=== PATIENT | female | born 1955 | race American Indian/Alaskan Native ===

== ENCOUNTER 2018-05-04 08:10 | Inpatient (IN) | payer MEDICARE ==
--- NOTE | 2018-05-04 09:28 | Emergency Department Report ---
ED Shortness of Breath HPI - General Chief Complaint: Adult Asthma Stated Complaint: DIFFICULTY BREATHING Time Seen by Provider: 05/04/18 09:23 Source: EMS Mode of arrival: Stretcher Limitations: Physical Limitation - History of Present Illness Initial Comments: Patient is a 62-year-old female who presents to emergency room with complaints of chest pain and shortness of breath. 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 Patient is currently on antibiotics and a prednisone taper pack. Patient has had multiple breathing treatments since being seen on Saturday. Patient states that the pain in her chest is worse with deep breath and cough and exertion. Patient stated her pain and shortness of breath are better with rest and medications. Patient was brought in by EMS and was given albuterol & Medrol 125 mg and 2 g of magnesium. Patient states she feels a little bit better after the EMS interventions. Patient stated today her symptoms all worsened. Patient states the chest pain is a 6 out of 10 MD Complaint: shortness of breath, cough -: Sudden Severity: severe Pain Scale: 10 Quality: throbbing Consistency: constant Improves With: oxygen, rest, bronchodilators, upright position, medication Worsens With: exertion, movement, coughing, inspiration Known History Of: asthma Context: recent URI Associated Symptoms: chest pain, pain with inspiration, cough, sputum production Treatments Prior to Arrival: oxygen, bronchodilator - Related Data Home Oxygen Therapy: No Home Medications Medication Instructions Recorded Confirmed Last Taken Lisinopril 10 mg PO DAILY 08/22/14 05/24/15 05/24/15 glipiZIDE [Glipizide ER] 10 mg PO AC 08/22/14 05/04/18 05/03/18 ALBUTEROL Inhaler [ProAir HFA 05/24/15 05/24/15 05/24/15 Inhaler] ALBUTEROL NEB's [Proventil 0.083%] 2.5 mg IH TID PRN 05/24/15 05/04/18 05/04/18 Amitriptyline [Elavil] 25 mg PO QHS 05/04/18 05/04/18 05/03/18 Carvedilol [Coreg] 12.5 mg PO BID 05/04/18 05/04/18 05/03/18 Escitalopram [Lexapro] 10 mg PO DAILY 05/04/18 05/04/18 05/03/18 Insulin Detemir [Levemir VIAL] 53 unit SQ QHS 05/04/18 05/04/18 05/03/18 Levofloxacin [Levaquin] 750 mg PO QDAY 05/04/18 05/04/18 05/03/18 Mirtazapine [Remeron] 15 mg PO 05/04/18 05/03/18 NIFEdipine [Nifedipine ER] 30 mg PO 05/04/18 05/03/18 Pantoprazole [Protonix TAB] 40 mg QDAY 05/04/18 05/04/18 05/03/18 Pioglitazone [Actos] 30 mg PO QDAY 05/04/18 05/04/18 05/03/18 Prednisone 20 mg PO DAILY 05/04/18 05/04/18 05/03/18 Pregabalin [Lyrica] 50 mg PO BID 05/04/18 05/04/18 05/03/18 Sodium Bicarbonate 650 mg PO BID 05/04/18 05/04/18 05/03/18 Previous Rx's Medication Instructions Recorded Last Taken Type HYDROcodone/APAP 10-325 [[place] 1 each PO Q6HR PRN #20 tablet 08/22/14 05/24/15 Rx 10/325] Allergies Allergy/AdvReac Type Severity Reaction Status Date / Time sulfamethoxazole Allergy Unknown Verified 08/22/14 07:38 [From Bactrim] trimethoprim [From Bactrim] Allergy Unknown Verified 08/22/14 07:38 azithromycin [From Zithromax] AdvReac Mild Itching Verified 08/22/14 11:36 ED Review of Systems ROS: Stated complaint: DIFFICULTY BREATHING Other details as noted in HPI Constitutional: denies: chills, fever Eyes: denies: eye pain, eye discharge, vision change ENT: denies: ear pain, throat pain Respiratory: cough, shortness of breath, wheezing Cardiovascular: chest pain. denies: palpitations Endocrine: no symptoms reported Gastrointestinal: denies: abdominal pain, nausea, diarrhea Genitourinary: denies: urgency, dysuria, discharge Musculoskeletal: denies: back pain, joint swelling, arthralgia Skin: denies: rash, lesions Neurological: denies: headache, weakness, paresthesias Psychiatric: denies: anxiety, depression Hematological/Lymphatic: denies: easy bleeding, easy bruising ED Past Medical Hx - Past Medical History Previous Medical History?: Yes Hx Hypertension: Yes Hx Diabetes: Yes Hx Renal Disease: Yes (Stage 3) Hx Asthma: Yes Additional medical history: "FAP" - Surgical History Past Surgical History?: Yes Additional Surgical History: "Colon" & "lumbar surgery" - Family History Family history: hypertension - Social History Smoking Status: Current Every Day Smoker Substance Use Type: None - Medications Home Medications: Home Medications Medication Instructions Recorded Confirmed Last Taken Type HYDROcodone/APAP 10-325 [[place] 1 each PO Q6HR PRN #20 tablet 08/22/14 05/24/15 05/24/15 Rx 10/325] Lisinopril 10 mg PO DAILY 08/22/14 05/24/15 05/24/15 History glipiZIDE [Glipizide ER] 10 mg PO AC 08/22/14 05/04/18 05/03/18 History ALBUTEROL Inhaler [ProAir HFA 05/24/15 05/24/15 05/24/15 History Inhaler] ALBUTEROL NEB's [Proventil 0.083%] 2.5 mg IH TID PRN 05/24/15 05/04/18 05/04/18 History Amitriptyline [Elavil] 25 mg PO QHS 05/04/18 05/04/18 05/03/18 History Carvedilol [Coreg] 12.5 mg PO BID 05/04/18 05/04/18 05/03/18 History Escitalopram [Lexapro] 10 mg PO DAILY 05/04/18 05/04/18 05/03/18 History Insulin Detemir [Levemir VIAL] 53 unit SQ QHS 05/04/18 05/04/18 05/03/18 History Levofloxacin [Levaquin] 750 mg PO QDAY 05/04/18 05/04/18 05/03/18 History Mirtazapine [Remeron] 15 mg PO 05/04/18 05/03/18 History NIFEdipine [Nifedipine ER] 30 mg PO 05/04/18 05/03/18 History Pantoprazole [Protonix TAB] 40 mg QDAY 05/04/18 05/04/18 05/03/18 History Pioglitazone [Actos] 30 mg PO QDAY 05/04/18 05/04/18 05/03/18 History Prednisone 20 mg PO DAILY 05/04/18 05/04/18 05/03/18 History Pregabalin [Lyrica] 50 mg PO BID 05/04/18 05/04/18 05/03/18 History Sodium Bicarbonate 650 mg PO BID 05/04/18 05/04/18 05/03/18 History ED Physical Exam - General Limitations: Physical Limitation General appearance: alert, in no apparent distress - Head Head exam: Present: atraumatic, normocephalic - Eye Eye exam: Present: normal appearance - ENT ENT exam: Present: mucous membranes moist - Neck Neck exam: Present: normal inspection - Respiratory Respiratory exam: Present: normal lung sounds bilaterally. Absent: respiratory distress - Cardiovascular Cardiovascular Exam: Present: regular rate, normal rhythm. Absent: systolic murmur, diastolic murmur, rubs, gallop - GI/Abdominal GI/Abdominal exam: Present: soft, normal bowel sounds - Extremities Exam Extremities exam: Present: normal inspection - Back Exam Back exam: Present: normal inspection - Neurological Exam Neurological exam: Present: alert, oriented X3 - Psychiatric Psychiatric exam: Present: normal affect, normal mood - Skin Skin exam: Present: warm, dry, intact, normal color. Absent: rash ED Course Vital Signs 05/04/18 05/04/18 05/04/18 09:06 09:09 09:15 Temperature 98.6 F Pulse Rate 96 H 96 H Respiratory 22 23 Rate Blood Pressure 173/85 O2 Sat by Pulse 98 98 98 Oximetry 05/04/18 05/04/18 05/04/18 10:00 11:00 12:00 Temperature Pulse Rate 94 H 93 H 99 H Respiratory 20 18 21 Rate Blood Pressure 173/85 168/87 175/94 O2 Sat by Pulse 100 97 96 Oximetry 05/04/18 05/04/18 13:00 14:00 Temperature Pulse Rate 99 H 96 H Respiratory 15 18 Rate Blood Pressure 175/94 144/79 O2 Sat by Pulse 96 97 Oximetry - Reevaluation(s) Reevaluation #1: Lung sounds wheezing throughout. Patient still complains of pain in her chest and back and would like something more for pain 05/04/18 11:32 Reevaluation #2: Hospitals consult for admission. Discussed case with Dr. Zaragoza and to assume care. Discussed with patient plan of care. Patient agreed to admission. 05/04/18 12:30 ED Medical Decision Making - Lab Data Result diagrams: 05/04/18 09:39 05/04/18 09:39 - EKG Data -: EKG Interpreted by Me EKG shows normal: sinus rhythm, axis, intervals, QRS complexes, ST-T waves Rate: normal - Radiology Data Radiology results: report reviewed, image reviewed interpreted by me: No acute findings on chest Mohammad chest x-ray per radiologist - Medical Decision Making She is a 62-year-old female that presents emergency room with shortness of breath and chest pain and hypoxia. Patient found to have asthma exacerbation. Will admit patient to the hospital for evaluation and treatment. - Differential Diagnosis asthma exac. copd exac. bronchitis. hypoxia. sob. cp Critical Care Time: Yes Critical care attestation.: If time is entered above; I have spent that time in minutes in the direct care of this critically ill patient, excluding procedure time. Critical Care Time: 40 minutes spent for critical care time ED Disposition Clinical Impression: Respiratory distress, Hypoxia, Asthma exacerbation Disposition: OP ADMIT IP TO THIS HOSP Is pt being admited?: Yes Does the pt Need Aspirin: No Condition: Critical Time of Disposition: 12:35
[2018-05-04 10:04] LABS: Basophils # (Auto) 0.1 K/mm3 (0.0-0.1); Basophils % (Auto) 0.9 % (0.0-1.8); Eosinophils % (Auto) 0.2 % (0.0-4.3); Hematocrit 43.9 % (30.3-42.9); Hemoglobin 14.5 gm/dl (10.1-14.3); Lymphocytes # (Auto) 1.3 K/mm3 (1.2-5.4); Lymphocytes % (Auto) 13.9 % (13.4-35.0); Mean Corpuscular HGB Conc 33 % (30-34); Mean Corpuscular Hemoglobin 31 pg (28-32); Mean Corpuscular Volume 94 fl (79-97); Monocytes # (Auto) 0.9 K/mm3 (0.0-0.8); Platelet Count 178 K/mm3 (140-440); Red Blood Count 4.68 M/mm3 (3.65-5.03); Red Cell Distribution Width 13.9 % (13.2-15.2)
[2018-05-04] MEDS ORDERED: MORPHINE IV ONE (10:05)
[2018-05-04] MEDS ORDERED: BENADRYL IV ONE (10:07)
[2018-05-04 10:17] LABS: Creatine Kinase MB 1.7 ng/mL (0.0-4.0)
[2018-05-04 10:20] LABS: Alanine Aminotransferase 15 units/L (7-56); Albumin 3.9 g/dL (3.9-5); BUN/Creatinine Ratio 18; Blood Urea Nitrogen 27 mg/dL (7-17); Calcium 9.1 mg/dL (8.4-10.2); Hemolysis Index 9
[2018-05-04 10:32] LABS: Bilirubin,Urine NEG (Negative); Blood,Urine NEG (Negative); Color,Urine Yellow (Yellow); Mucus,Urine FEW /HPF; Urobilinogen,Urine < 2.0 mg/dL (<2.0)
[2018-05-04] MEDS ORDERED: DUONEB *Not for PRN Use IH ONE (11:32)
[2018-05-04] MEDS ORDERED: DILAUDID IV ONE (11:33)
--- NOTE | 2018-05-04 11:57 | XRay Report ---
AP CHEST: HISTORY: Short of breath AP view of the chest demonstrates a normal mediastinal and cardiac contour with clear lungs and normal bony and soft tissue structures. IMPRESSION: Unremarkable AP chest.
[2018-05-04] MEDS ORDERED: ASPIRIN PO ONE (12:34)
--- NOTE | 2018-05-04 12:55 | History and Physical Report ---
History of Present Illness Chief complaint: I cant breathe History of present illness: 62 YO Female with HTN, DM, CKD-3, Asthma, FAP, Nicotine Dependence presents to ED for evaluation. Pt states that she has experienced shortness of breath, nonproductive cough, and chest discomfort over the past 1 week with worsening symptoms over the past 2 days. Pt was prescribed and was compliant with oral antibiotics and steroid dose pack last week without improvement in symptoms. Patient has had multiple breathing treatments without improvement. Patient states that the discomfort in her chest is caused by coughing, and worsened with deep breathing. EMS notified, and upon arrival the patient was found to have Acute Respiratory Failure. Pt was transported to [facility] for further care and evaluation. Pt seen and evaluated in ED and found to have Acute Bronchitis complicated by Acute Respiratory Failure, as well as acute on chronic renal failure. PT admitted to medical floor. Past History Past Medical History: diabetes, hypertension, renal failure Past Surgical History: bowel surgery, Other (Lumbar Spine Surgery) Social history: smoking Family history: diabetes, hypertension Medications and Allergies Allergies Allergy/AdvReac Type Severity Reaction Status Date / Time sulfamethoxazole Allergy Unknown Verified 08/22/14 07:38 [From Bactrim] trimethoprim [From Bactrim] Allergy Unknown Verified 08/22/14 07:38 azithromycin [From Zithromax] AdvReac Mild Itching Verified 08/22/14 11:36 Home Medications Medication Instructions Recorded Confirmed Last Taken Type HYDROcodone/APAP 10-325 [[place] 1 each PO Q6HR PRN #20 tablet 08/22/14 05/24/15 05/24/15 Rx 10/325] Lisinopril 10 mg PO DAILY 08/22/14 05/24/15 05/24/15 History glipiZIDE [Glipizide ER] 10 mg PO AC 08/22/14 05/04/18 05/03/18 History ALBUTEROL Inhaler [ProAir HFA 05/24/15 05/24/15 05/24/15 History Inhaler] ALBUTEROL NEB's [Proventil 0.083%] 2.5 mg IH TID PRN 05/24/15 05/04/18 05/04/18 History Amitriptyline [Elavil] 25 mg PO QHS 05/04/18 05/04/18 05/03/18 History Carvedilol [Coreg] 12.5 mg PO BID 05/04/18 05/04/18 05/03/18 History Escitalopram [Lexapro] 10 mg PO DAILY 05/04/18 05/04/18 05/03/18 History Insulin Detemir [Levemir VIAL] 53 unit SQ QHS 05/04/18 05/04/18 05/03/18 History Levofloxacin [Levaquin] 750 mg PO QDAY 05/04/18 05/04/18 05/03/18 History Mirtazapine [Remeron] 15 mg PO 05/04/18 05/03/18 History NIFEdipine [Nifedipine ER] 30 mg PO 05/04/18 05/03/18 History Pantoprazole [Protonix TAB] 40 mg QDAY 05/04/18 05/04/18 05/03/18 History Pioglitazone [Actos] 30 mg PO QDAY 05/04/18 05/04/18 05/03/18 History Prednisone 20 mg PO DAILY 05/04/18 05/04/18 05/03/18 History Pregabalin [Lyrica] 50 mg PO BID 05/04/18 05/04/18 05/03/18 History Sodium Bicarbonate 650 mg PO BID 05/04/18 05/04/18 05/03/18 History Review of Systems Constitutional: no weight loss, no weight gain, no fever, no chills, no sweats Ears, nose, mouth and throat: no ear pain, no ear discharge, no tinnitis, no decreased hearing, no nose pain, no nasal congestion, no nasal discharge Breasts: no change in shape, no swelling, no mass, no skin changes, no Cardiovascular: no chest pain, no orthopnea, no palpitations, no edema, no lightheadedness, no dyspnea on exertion, no paroxysmal nocturnal dyspnea, no claudication Respiratory: cough, shortness of breath, no cough with sputum, no excessive sputum, no hemoptysis, no congestion Gastrointestinal: no nausea, no vomiting, no diarrhea, no constipation Genitourinary Female: no pelvic pain, no flank pain, no menorrhagia, no dysuria , no urinary frequency, no urgency Rectal: no pain, no incontinence, no bleeding Musculoskeletal: no neck stiffness, no neck pain, no shooting arm pain, no arm numbness/tingling, no low back pain, no shooting leg pain Integumentary: no rash, no pruritis, no redness, no sores, no wounds, no jaundice Neurological: no transient paralysis, no paralysis, no weakness, no parathesias , no numbness, no tingling, no seizures, no syncope Psychiatric: no anxiety, no memory loss, no change in sleep habits, no sleep disturbances, no insomnia, no hypersomnia, no change in appetite, no change in libido Endocrine: no cold intolerance, no heat intolerance, no polyphagia, no excessive thirst, no polydipsia, no polyuria, no nocturia Hematologic/Lymphatic: no easy bruising, no easy bleeding, no lymphadenopathy, no lymphedema Allergic/Immunologic: no urticaria, no allergic rhinitis, no wheezing, no persistent infections, no anaphylaxis Exam - Constitutional Vitals: Temp Pulse Resp BP Pulse Ox 98.6 F 99 H 21 175/94 96 05/04/18 09:09 05/04/18 12:00 05/04/18 12:00 05/04/18 12:00 05/04/18 12:00 General appearance: Present: mild distress - EENT Eyes: Present: PERRL ENT: hearing intact, clear oral mucosa - Neck Neck: Present: supple, normal ROM - Respiratory Respiratory effort: labored Respiratory: bilateral: diminished, wheezing - Cardiovascular Heart Sounds: Present: S1 & S2. Absent: rub, click - Extremities Extremities: pulses symmetrical, No edema Peripheral Pulses: within normal limits - Integumentary Integumentary: Present: clear, warm, dry - Musculoskeletal Musculoskeletal: gait normal, strength equal bilaterally - Psychiatric Psychiatric: appropriate mood/affect, intact judgment & insight - Neurologic Neurologic: CNII-XII intact, moves all extremities Results - Labs CBC & Chem 7: 05/04/18 09:39 05/04/18 09:39 Labs: Abnormal lab results 05/04/18 05/04/18 Range/Units 09:39 09:39 Hgb 14.5 H (10.1-14.3) gm/dl Hct 43.9 H (30.3-42.9) % [place] % (Auto) 10.0 H (0.0-7.3) % [place] # 0.9 H (0.0-0.8) K/mm3 Seg Neutrophils % 75.0 H (40.0-70.0) % BUN 27 H (7-17) mg/dL Creatinine 1.5 H (0.7-1.2) mg/dL Glucose 217 H (65-100) mg/dL Alkaline Phosphatase 184 H (35-129) units/L Total Protein 6.2 L (6.3-8.2) g/dL Assessment and Plan - Patient Problems (1) Respiratory failure Current Visit: Yes Status: Acute Qualifiers: Chronicity: acute Respiratory failure complication: hypoxia Qualified Code(s): J96.01 - Acute respiratory failure with hypoxia Plan to address problem: Supplemental oxygen, nebulizer therapy, IV antibiotics, IV steroid therpay. (2) Nicotine dependence Current Visit: Yes Status: Acute Qualifiers: Substance use status: in withdrawal Plan to address problem: supportive care, smoking cessation counseling, (3) Acute bronchitis Current Visit: Yes Status: Acute Qualifiers: Bronchitis organism: unspecified organism Qualified Code(s): J20.9 - Acute bronchitis, unspecified Plan to address problem: IV antibiotics, IV steroid therapy, supplemental oxygen, nebulizer therapy (4) ARF (acute renal failure) Current Visit: Yes Status: Acute Qualifiers: Acute renal failure type: with acute tubular necrosis Qualified Code(s): N17.0 - Acute kidney failure with tubular necrosis Plan to address problem: monitor uop q shift, IVF resuscitation therapy, urine electrolytes, repeat bmp. (5) Accelerated hypertension Current Visit: Yes Status: Acute Plan to address problem: monitor bp q shift, continue prehospital therapy, IV hydralazine prn (6) DVT prophylaxis Current Visit: Yes Status: Acute Plan to address problem: SCD to BLE while in bed.
[2018-05-04] MEDS ORDERED: TYLENOL PO PRN (15:23)
[2018-05-04] MEDS ORDERED: SODIUM CHLORIDE FLUSH SYRINGE 10 ML IV PRN (15:23)
[2018-05-04] MEDS ORDERED: ASPIRIN ONE (15:29)
[2018-05-04] MEDS ORDERED: APRESOLINE IV PRN (15:30)
[2018-05-04] MEDS: NORCO 10/325 PO PRN ×2 (15:51→21:23)
[2018-05-04] MEDS: ZOFRAN IV PRN (15:52)
[2018-05-04] MEDS: PROVENTIL IH PRN (20:39)
[2018-05-04] MEDS: LEVAQUIN 500MG/100ML 500 MG/100 ML BAG IV SCH (21:22)
[2018-05-04] MEDS: LYRICA PO SCH (21:22)
[2018-05-04] MEDS: COREG PO SCH (21:24)
[2018-05-04] MEDS: ELAVIL PO SCH (21:26)
[2018-05-04] MEDS: SODIUM BICARBONATE PO SCH (21:26)
[2018-05-04] MEDS ORDERED: INSULIN DETEMIR 53 UNIT SQ SCH (22:00)
[2018-05-04] MEDS: LANTUS SUB-Q SCH (23:26)
[2018-05-04] MEDS: SODIUM CHLORIDE FLUSH SYRINGE 10 ML IV SCH (23:28)
[2018-05-05] MEDS: PROVENTIL IH PRN ×4 (01:55→16:30)
[2018-05-05] MEDS: ZOFRAN IV PRN (01:55)
[2018-05-05] MEDS: NORCO 10/325 PO PRN ×3 (07:38→21:01)
[2018-05-05] MEDS: LYRICA PO SCH ×3 (07:44→21:01)
[2018-05-05] MEDS: COREG PO SCH ×2 (10:43→22:48)
[2018-05-05] MEDS: LEXAPRO PO SCH (10:45)
[2018-05-05] MEDS: PROTONIX PO SCH (10:45)
[2018-05-05] MEDS: ZESTRIL PO SCH (10:46)
[2018-05-05] MEDS: SODIUM CHLORIDE FLUSH SYRINGE 10 ML IV SCH (10:46)
[2018-05-05] MEDS: SODIUM BICARBONATE PO SCH ×2 (10:46→22:48)
[2018-05-05 12:37] LABS: Creatinine,Urine 71.6 mg/dL (0.1-20.0)
--- NOTE | 2018-05-05 15:45 | Progress Note ---
Assessment and Plan Assessment and Plan - Patient Problems (1) Respiratory failure Current Visit: Yes Status: Acute Qualifiers: Chronicity: acute Respiratory failure complication: hypoxia Qualified Code(s): J96.01 - Acute respiratory failure with hypoxia Plan to address problem: Supplemental oxygen, nebulizer therapy, IV antibiotics, IV steroid therpay. (2) Nicotine dependence Current Visit: Yes Status: Acute Qualifiers: Substance use status: in withdrawal Plan to address problem: supportive care, smoking cessation counseling, (3) Acute bronchitis Current Visit: Yes Status: Acute Qualifiers: Bronchitis organism: unspecified organism Qualified Code(s): J20.9 - Acute bronchitis, unspecified Plan to address problem: IV antibiotics, IV steroid therapy, supplemental oxygen, nebulizer therapy (4) ARF (acute renal failure) Current Visit: Yes Status: Acute Qualifiers: Acute renal failure type: with acute tubular necrosis Qualified Code(s): N17.0 - Acute kidney failure with tubular necrosis Plan to address problem: monitor uop q shift, IVF resuscitation therapy, urine electrolytes, repeat bmp. (5) Accelerated hypertension Current Visit: Yes Status: Acute Plan to address problem: monitor bp q shift, continue prehospital therapy, IV hydralazine prn (6) DVT prophylaxis Current Visit: Yes Status: Acute Plan to address problem: SCD to BLE while in bed. Subjective Date of service: 05/05/18 Principal diagnosis: Acute resp failure Interval history: Sx better Objective - Constitutional Vitals: Vital Signs - 12hr 05/05/18 05/05/18 05/05/18 04:19 07:42 10:43 Temperature 97.8 F 97.4 F L Pulse Rate Pulse Rate [ Anterior Bilateral Throughout] Respiratory 18 19 Rate Respiratory Rate [Anterior Bilateral Throughout] Blood Pressure 179/88 157/77 157/77 O2 Sat by Pulse Oximetry 05/05/18 05/05/18 05/05/18 10:46 11:17 11:21 Temperature 97.9 F Pulse Rate 91 H Pulse Rate [ 91 H Anterior Bilateral Throughout] Respiratory 19 Rate Respiratory 18 Rate [Anterior Bilateral Throughout] Blood Pressure 157/77 155/78 O2 Sat by Pulse 97 99 Oximetry 05/05/18 11:31 Temperature Pulse Rate Pulse Rate [ 97 H Anterior Bilateral Throughout] Respiratory Rate Respiratory 20 Rate [Anterior Bilateral Throughout] Blood Pressure O2 Sat by Pulse Oximetry General appearance: Present: mild distress, well-nourished - EENT Eyes: PERRL, EOM intact ENT: hearing intact, clear oral mucosa Ears: bilateral: normal - Neck Neck: supple, normal ROM - Respiratory Respiratory effort: normal Respiratory: bilateral: CTA, rhonchi, wheezing - Breasts Breasts: deferred, normal - Cardiovascular Heart rate: 78 Rhythm: regular Heart Sounds: Present: S1 & S2. Absent: gallop, rub Extremities: no ischemia, pulses intact, No edema, normal color, Full ROM - Gastrointestinal General gastrointestinal: Present: soft, non-tender, non-distended, normal bowel sounds - Genitourinary Female genitourinary: normal - Integumentary Integumentary: clear, warm, dry - Musculoskeletal Musculoskeletal: 1, strength equal bilaterally - Neurologic Neurologic: moves all extremities - Psychiatric Psychiatric: memory intact, appropriate mood/affect, intact judgment & insight - Labs CBC & Chem 7: 05/04/18 09:39 05/04/18 09:39 Labs: Abnormal lab results 05/04/18 05/05/18 05/05/18 Range/Units 22:46 07:15 07:58 POC Glucose 497 H 320 H (70-105) Urine Creatinine 71.6 H (0.1-20.0) mg/dL 05/05/18 Range/Units 11:26 POC Glucose 385 H (70-105) Urine Creatinine (0.1-20.0) mg/dL
[2018-05-05] MEDS: HumaLOG SUB-Q SCH (18:19)
[2018-05-05] MEDS: DUONEB *Not for PRN Use IH SCH (19:39)
[2018-05-05] MEDS: LEVAQUIN 500MG/100ML 500 MG/100 ML BAG IV SCH (21:03)
[2018-05-05] MEDS: ELAVIL PO SCH (22:48)
[2018-05-05] MEDS: LANTUS SUB-Q SCH (22:49)
[2018-05-06] MEDS: DUONEB *Not for PRN Use IH SCH ×4 (01:41→19:14)
[2018-05-06] MEDS: ZOFRAN IV PRN ×2 (05:01→13:44)
[2018-05-06] MEDS: MORPHINE IV PRN ×2 (05:01→13:44)
[2018-05-06] MEDS: PROTONIX PO SCH (09:10)
[2018-05-06] MEDS: LYRICA PO SCH ×3 (09:11→23:32)
[2018-05-06] MEDS: ZESTRIL PO SCH (09:11)
[2018-05-06] MEDS: HumaLOG SUB-Q SCH ×5 (09:12→23:20)
[2018-05-06] MEDS: SODIUM BICARBONATE PO SCH ×2 (09:12→23:19)
[2018-05-06] MEDS: LEXAPRO PO SCH (09:12)
[2018-05-06] MEDS: SODIUM CHLORIDE FLUSH SYRINGE 10 ML IV SCH ×3 (09:13→23:26)
[2018-05-06] MEDS: COREG PO SCH ×2 (09:14→23:25)
[2018-05-06] MEDS: NORCO 10/325 PO PRN (09:52)
--- NOTE | 2018-05-06 14:38 | Progress Note ---
Assessment and Plan Assessment and plan: Patient is a 62 yo woman with a history IDDM, CKD 3, FAP, hypertension, depression, GERD, peripheral neuropathy and tobacco dependency who presents with sob. -Suspected Acute hypoxic respiratory failure, poa: down to 1 liter of O2, continue to wean, treat with iv steroids and nebs. -Acute asthma exacerabation: steroid and nebs. -Tobacco dependency: patent counsel on stopping done. -IDDM uncontrolled due to steroids: reduce iv steroids, ssi, ada -CKD 3: repeat bmp am -DVT prophylaxis: add sq heparin renally dosed. full code History Interval history: Patient was seen and examined. Follow-up on current diagnosis of sob. Overnight uneventful. Patient denies any chest pain, nausea/vomiting or severe headaches. Imaging, nursing note, chart, labs and old chart reviewed. Discussed with patient. Hospitalist Physical - Physical exam Narrative exam: GEN: ill appearing, NAD, Awake, Alert, Orientated x 3 HEENT: NCAT, EOMI, PERRL, OP Clear NECK: supple, no adenopathy, no thyromegaly, no JVD CVS/HEART: RRR, normal S1S2, pulses present bilaterally CHEST/LUNGS: diminished bs bilateral, exp wheezing, Symmetrical chest expansion , good air entry bilaterally GI/Abdomen: soft, NTND, good bowel sounds, no guarding or rebound /Bladder: no suprapubic tenderness, no CVA or paraspinal tenderness EXT/Skin: no c/c/e, no obvious rash MSK: FROM x 4 Neuro: CN 2-12 grossly intact, no new focal deficits Psych: calm - Constitutional Vitals: Temp Pulse Resp BP Pulse Ox 97.7 F 90 20 146/77 84 05/06/18 14:22 05/06/18 14:22 05/06/18 14:22 05/06/18 14:22 05/06/18 14:22 General appearance: Present: mild distress, well-nourished Results - Labs CBC & Chem 7: 05/04/18 09:39 05/04/18 09:39 Labs: Laboratory Last Values WBC 9.1 K/mm3 (4.5-11.0) 05/04/18 09:39 RBC 4.68 M/mm3 (3.65-5.03) 05/04/18 09:39 Hgb 14.5 gm/dl (10.1-14.3) H 05/04/18 09:39 Hct 43.9 % (30.3-42.9) H 05/04/18 09:39 MCV 94 fl (79-97) 05/04/18 09:39 MCH 31 pg (28-32) 05/04/18 09:39 MCHC 33 % (30-34) 05/04/18 09:39 RDW 13.9 % (13.2-15.2) 05/04/18 09:39 Plt Count 178 K/mm3 (140-440) 05/04/18 09:39 Lymph % (Auto) 13.9 % (13.4-35.0) 05/04/18 09:39 [place] % (Auto) 10.0 % (0.0-7.3) H 05/04/18 09:39 Eos % (Auto) 0.2 % (0.0-4.3) 05/04/18 09:39 Baso % (Auto) 0.9 % (0.0-1.8) 05/04/18 09:39 Lymph # 1.3 K/mm3 (1.2-5.4) 05/04/18 09:39 [place] # 0.9 K/mm3 (0.0-0.8) H 05/04/18 09:39 Eos # 0.0 K/mm3 (0.0-0.4) 05/04/18 09:39 Baso # 0.1 K/mm3 (0.0-0.1) 05/04/18 09:39 Seg Neutrophils % 75.0 % (40.0-70.0) H 05/04/18 09:39 Seg Neutrophils # 6.8 K/mm3 (1.8-7.7) 05/04/18 09:39 D-Dimer 135.00 ng/mlDDU (0-234) 05/04/18 09:39 Sodium 137 mmol/L (137-145) 05/04/18 09:39 Potassium 4.4 mmol/L (3.6-5.0) 05/04/18 09:39 Chloride 98.7 mmol/L (98-107) 05/04/18 09:39 Carbon Dioxide 27 mmol/L (22-30) 05/04/18 09:39 Anion Gap 16 mmol/L 05/04/18 09:39 BUN 27 mg/dL (7-17) H 05/04/18 09:39 Creatinine 1.5 mg/dL (0.7-1.2) H 05/04/18 09:39 Estimated GFR 43 ml/min 05/04/18 09:39 BUN/Creatinine Ratio 18 % 05/04/18 09:39 Glucose 217 mg/dL (65-100) H 05/04/18 09:39 POC Glucose 365 (70-105) H 05/06/18 11:44 Lactic Acid 1.50 mmol/L (0.7-2.0) 05/04/18 09:39 Calcium 9.1 mg/dL (8.4-10.2) 05/04/18 09:39 Total Bilirubin 0.60 mg/dL (0.1-1.2) 05/04/18 09:39 AST 15 units/L (5-40) 05/04/18 09:39 ALT 15 units/L (7-56) 05/04/18 09:39 Alkaline Phosphatase 184 units/L (35-129) H 05/04/18 09:39 Total Creatine Kinase 112 units/L (30-135) 05/04/18 09:39 CK-MB (CK-2) 1.7 ng/mL (0.0-4.0) 05/04/18 09:39 CK-MB (CK-2) Rel Index 1.5 (0-4) 05/04/18 09:39 Troponin T < 0.010 ng/mL (0.00-0.029) 05/04/18 09:39 NT-Pro-B Natriuret Pep 258.5 pg/mL (0-900) 05/04/18 09:36 Total Protein 6.2 g/dL (6.3-8.2) L 05/04/18 09:39 Albumin 3.9 g/dL (3.9-5) 05/04/18 09:39 Albumin/Globulin Ratio 1.7 % 05/04/18 09:39 Urine Color Yellow (Yellow) 05/04/18 09:59 Urine Turbidity Clear (Clear) 05/04/18 09:59 Urine pH 6.0 (5.0-7.0) 05/04/18 09:59 Ur Specific [place] 1.017 (1.003-1.030) 05/04/18 09:59 Urine Protein 100 mg/dl mg/dL (Negative) 05/04/18 09:59 Urine Glucose (UA) >=500 mg/dL (Negative) 05/04/18 09:59 Urine Ketones Neg mg/dL (Negative) 05/04/18 09:59 Urine Blood Neg (Negative) 05/04/18 09:59 Urine Nitrite Neg (Negative) 05/04/18 09:59 Urine Bilirubin Neg (Negative) 05/04/18 09:59 Urine Urobilinogen < 2.0 mg/dL (<2.0) 05/04/18 09:59 Ur Leukocyte Esterase Neg (Negative) 05/04/18 09:59 Urine WBC (Auto) 1.0 /HPF (0.0-6.0) 05/04/18 09:59 Urine RBC (Auto) 3.0 /HPF (0.0-6.0) 05/04/18 09:59 U Epithel Cells (Auto) 1.0 /HPF (0-13.0) 05/04/18 09:59 Urine Mucus Few /HPF 05/04/18 09:59 Urine Yeast (Budding) 1+ /HPF 05/04/18 09:59 Urine Creatinine 71.6 mg/dL (0.1-20.0) H 05/05/18 07:58 Urine Sodium 48 mmol/L 05/05/18 07:58
[2018-05-06] MEDS: ELAVIL PO SCH (23:19)
[2018-05-06] MEDS: LEVAQUIN 500MG/100ML 500 MG/100 ML BAG IV SCH (23:24)
[2018-05-06] MEDS: LANTUS SUB-Q SCH (23:26)
[2018-05-07] MEDS: NORCO 10/325 PO PRN ×2 (01:16→18:15)
[2018-05-07] MEDS: DUONEB *Not for PRN Use IH SCH ×4 (01:32→19:05)
[2018-05-07] MEDS: MORPHINE IV PRN ×2 (03:53→10:07)
[2018-05-07 07:44] LABS: Hematocrit 43.5 % (30.3-42.9); Hemoglobin 14.3 gm/dl (10.1-14.3); Mean Corpuscular HGB Conc 33 % (30-34); Mean Corpuscular Hemoglobin 31 pg (28-32); Mean Corpuscular Volume 95 fl (79-97); Platelet Count 173 K/mm3 (140-440); Red Blood Count 4.58 M/mm3 (3.65-5.03); Red Cell Distribution Width 13.7 % (13.2-15.2)
[2018-05-07 08:09] LABS: Calcium 8.9 mg/dL (8.4-10.2)
[2018-05-07] MEDS ORDERED: HumaLOG SUB-Q ONE ×2 (08:45→12:47)
[2018-05-07] MEDS: HumaLOG SUB-Q SCH ×4 (08:57→23:09)
[2018-05-07] MEDS: LYRICA PO SCH ×3 (10:08→23:10)
[2018-05-07] MEDS: SODIUM BICARBONATE PO SCH ×2 (12:20→23:10)
[2018-05-07] MEDS: COREG PO SCH ×2 (12:21→23:13)
[2018-05-07] MEDS: PROTONIX PO SCH (12:21)
[2018-05-07] MEDS: LEXAPRO PO SCH (12:21)
[2018-05-07] MEDS: ZESTRIL PO SCH (12:22)
[2018-05-07] MEDS: ZOFRAN IV PRN (13:09)
[2018-05-07] MEDS: SODIUM CHLORIDE FLUSH SYRINGE 10 ML IV SCH ×2 (13:09→22:00)
[2018-05-07] MEDS ORDERED: D50W (25GM) Syringe IV PRN (15:53)
--- NOTE | 2018-05-07 15:55 | Progress Note ---
Assessment and Plan Assessment and plan: Patient is a 62 yo woman with a history IDDM, CKD 3, FAP, hypertension, depression, GERD, peripheral neuropathy and tobacco dependency who presents with sob. -Suspected Acute hypoxic respiratory failure, poa: down to 1 liter of O2, continue to wean, treat with iv steroids and nebs. -Acute asthma exacerabation: steroid and nebs. -Tobacco dependency: correctional counselor/case manager on stopping done. -IDDM uncontrolled due to steroids: reduce iv steroids, ssi, ada -CKD 3: repeat bmp am -DVT prophylaxis: add sq heparin renally dosed. full code Blood glucose extremely high, will increase Lantus to 56 units qhs and increase ssi also. anticipate discharge tomorrow if blood glucose under 300 History Interval history: Patient was seen and examined. Follow-up on current diagnosis of sob. Overnight uneventful. Patient denies any chest pain, nausea/vomiting or severe headaches. Imaging, nursing note, chart, labs and old chart reviewed. Discussed with patient. Hospitalist Physical - Physical exam Narrative exam: GEN: ill appearing, NAD, Awake, Alert, Orientated x 3 HEENT: NCAT, EOMI, PERRL, OP Clear NECK: supple, no adenopathy, no thyromegaly, no JVD CVS/HEART: RRR, normal S1S2, pulses present bilaterally CHEST/LUNGS: diminished bs bilateral, exp wheezing, Symmetrical chest expansion , good air entry bilaterally GI/Abdomen: soft, NTND, good bowel sounds, no guarding or rebound /Bladder: no suprapubic tenderness, no CVA or paraspinal tenderness EXT/Skin: no c/c/e, no obvious rash MSK: FROM x 4 Neuro: CN 2-12 grossly intact, no new focal deficits Psych: calm - Constitutional Vitals: Temp Pulse Resp BP Pulse Ox 98.9 F 111 H 18 194/100 98 05/07/18 14:45 05/07/18 14:45 05/07/18 14:45 05/07/18 14:45 05/07/18 14:45 General appearance: Present: well-nourished. Absent: mild distress Results - Labs CBC & Chem 7: 05/07/18 07:04 05/07/18 14:25 Labs: Laboratory Last Values WBC 13.4 K/mm3 (4.5-11.0) H 05/07/18 07:04 RBC 4.58 M/mm3 (3.65-5.03) 05/07/18 07:04 Hgb 14.3 gm/dl (10.1-14.3) 05/07/18 07:04 Hct 43.5 % (30.3-42.9) H 05/07/18 07:04 MCV 95 fl (79-97) 05/07/18 07:04 MCH 31 pg (28-32) 05/07/18 07:04 MCHC 33 % (30-34) 05/07/18 07:04 RDW 13.7 % (13.2-15.2) 05/07/18 07:04 Plt Count 173 K/mm3 (140-440) 05/07/18 07:04 Lymph % (Auto) 13.9 % (13.4-35.0) 05/04/18 09:39 [place] % (Auto) 10.0 % (0.0-7.3) H 05/04/18 09:39 Eos % (Auto) 0.2 % (0.0-4.3) 05/04/18 09:39 Baso % (Auto) 0.9 % (0.0-1.8) 05/04/18 09:39 Lymph # 1.3 K/mm3 (1.2-5.4) 05/04/18 09:39 [place] # 0.9 K/mm3 (0.0-0.8) H 05/04/18 09:39 Eos # 0.0 K/mm3 (0.0-0.4) 05/04/18 09:39 Baso # 0.1 K/mm3 (0.0-0.1) 05/04/18 09:39 Seg Neutrophils % 75.0 % (40.0-70.0) H 05/04/18 09:39 Seg Neutrophils # 6.8 K/mm3 (1.8-7.7) 05/04/18 09:39 D-Dimer 135.00 ng/mlDDU (0-234) 05/04/18 09:39 Sodium 134 mmol/L (137-145) L 05/07/18 07:04 Potassium 5.3 mmol/L (3.6-5.0) H D 05/07/18 07:04 Chloride 95.1 mmol/L (98-107) L 05/07/18 07:04 Carbon Dioxide 23 mmol/L (22-30) 05/07/18 07:04 Anion Gap 21 mmol/L 05/07/18 07:04 BUN 40 mg/dL (7-17) H 05/07/18 07:04 Creatinine 1.6 mg/dL (0.7-1.2) H 05/07/18 07:04 Estimated GFR 40 ml/min 05/07/18 07:04 BUN/Creatinine Ratio 25 % 05/07/18 07:04 Glucose 591 mg/dL (65-100) H* 05/07/18 14:25 POC Glucose > 500 (70-105) H 05/07/18 12:11 Lactic Acid 1.50 mmol/L (0.7-2.0) 05/04/18 09:39 Calcium 8.9 mg/dL (8.4-10.2) 05/07/18 07:04 Total Bilirubin 0.60 mg/dL (0.1-1.2) 05/04/18 09:39 AST 15 units/L (5-40) 05/04/18 09:39 ALT 15 units/L (7-56) 05/04/18 09:39 Alkaline Phosphatase 184 units/L (35-129) H 05/04/18 09:39 Total Creatine Kinase 112 units/L (30-135) 05/04/18 09:39 CK-MB (CK-2) 1.7 ng/mL (0.0-4.0) 05/04/18 09:39 CK-MB (CK-2) Rel Index 1.5 (0-4) 05/04/18 09:39 Troponin T < 0.010 ng/mL (0.00-0.029) 05/04/18 09:39 NT-Pro-B Natriuret Pep 258.5 pg/mL (0-900) 05/04/18 09:36 Total Protein 6.2 g/dL (6.3-8.2) L 05/04/18 09:39 Albumin 3.9 g/dL (3.9-5) 05/04/18 09:39 Albumin/Globulin Ratio 1.7 % 05/04/18 09:39 Urine Color Yellow (Yellow) 05/04/18 09:59 Urine Turbidity Clear (Clear) 05/04/18 09:59 Urine pH 6.0 (5.0-7.0) 05/04/18 09:59 Ur Specific [place] 1.017 (1.003-1.030) 05/04/18 09:59 Urine Protein 100 mg/dl mg/dL (Negative) 05/04/18 09:59 Urine Glucose (UA) >=500 mg/dL (Negative) 05/04/18 09:59 Urine Ketones Neg mg/dL (Negative) 05/04/18 09:59 Urine Blood Neg (Negative) 05/04/18 09:59 Urine Nitrite Neg (Negative) 05/04/18 09:59 Urine Bilirubin Neg (Negative) 05/04/18 09:59 Urine Urobilinogen < 2.0 mg/dL (<2.0) 05/04/18 09:59 Ur Leukocyte Esterase Neg (Negative) 05/04/18 09:59 Urine WBC (Auto) 1.0 /HPF (0.0-6.0) 05/04/18 09:59 Urine RBC (Auto) 3.0 /HPF (0.0-6.0) 05/04/18 09:59 U Epithel Cells (Auto) 1.0 /HPF (0-13.0) 05/04/18 09:59 Urine Mucus Few /HPF 05/04/18 09:59 Urine Yeast (Budding) 1+ /HPF 05/04/18 09:59 Urine Creatinine 71.6 mg/dL (0.1-20.0) H 05/05/18 07:58 Urine Sodium 48 mmol/L 05/05/18 07:58
[2018-05-07] MEDS: HEPARIN SUB-Q SCH ×2 (16:15→23:11)
[2018-05-07] MEDS ORDERED: LANTUS SUB-Q SCH (22:00)
[2018-05-07] MEDS: ELAVIL PO SCH (23:12)
[2018-05-08] MEDS: DUONEB *Not for PRN Use IH SCH ×3 (02:09→14:42)
[2018-05-08] MEDS: NORCO 10/325 PO PRN ×2 (05:30→12:18)
[2018-05-08 07:55] LABS: Hematocrit 45.2 % (30.3-42.9); Hemoglobin 14.9 gm/dl (10.1-14.3); Mean Corpuscular HGB Conc 33 % (30-34); Mean Corpuscular Hemoglobin 31 pg (28-32); Mean Corpuscular Volume 94 fl (79-97); Platelet Count 167 K/mm3 (140-440); Red Blood Count 4.79 M/mm3 (3.65-5.03); Red Cell Distribution Width 13.9 % (13.2-15.2)
[2018-05-08] MEDS: LYRICA PO SCH ×2 (09:01→16:00)
[2018-05-08] MEDS: HumaLOG SUB-Q SCH ×3 (09:03→17:35)
--- NOTE | 2018-05-08 09:16 | Discharge Summary ---
Providers - Providers Date of Admission: 05/04/18 15:23 Date of discharge: 05/08/18 Attending physician: CLIFFORD COX Primary care physician: PERSONNEL RECRUITER Hospitalization Condition: Stable Hospital course: Patient is a 62 yo woman with a history IDDM, CKD 3, FAP, hypertension, depression, GERD, peripheral neuropathy and tobacco dependency who presents with sob. -Suspected Acute hypoxic respiratory failure, poa: down to 1 liter of O2, continue to wean, treat with iv steroids and nebs. -Acute asthma exacerabation: steroid and nebs. -Tobacco dependency: business and financial counsel on stopping done. -IDDM uncontrolled due to steroids: reduce iv steroids, ssi, ada -CKD 3: repeat bmp am -DVT prophylaxis: add sq heparin renal dosed. full code o2 weaned off at rest Disposition: IN-01 TO HOME OR SELFCARE Time spent for discharge: 35 min Core Measure Documentation - Palliative Care Palliative Care/ Comfort Measures: Not Applicable - Core Measures Any of the following diagnoses?: none - VTE Discharge Requirements Deep Vein Thrombosis/Pulmonary Embolism Present on Admission: No Has pt received <5 days of overlap therapy or INR<2.0: No Anticoagulant overlap therapy prescribed at discharge: No Contraindication No Overlap Therapy order at DC: Not Indicated Exam - Physical Exam Narrative exam: GEN: ill appearing, NAD, Awake, Alert, Orientated x 3 HEENT: NCAT, EOMI, PERRL, OP Clear NECK: supple, no adenopathy, no thyromegaly, no JVD CVS/HEART: RRR, normal S1S2, pulses present bilaterally CHEST/LUNGS: diminished bs bilateral, exp wheezing, Symmetrical chest expansion , good air entry bilaterally GI/Abdomen: soft, NTND, good bowel sounds, no guarding or rebound /Bladder: no suprapubic tenderness, no CVA or paraspinal tenderness EXT/Skin: no c/c/e, no obvious rash MSK: FROM x 4 Neuro: CN 2-12 grossly intact, no new focal deficits Psych: calm - Constitutional Vitals: Temp Pulse Resp BP Pulse Ox 98.3 F 96 H 22 154/83 100 05/08/18 08:08 05/08/18 09:11 05/08/18 09:11 05/08/18 08:08 05/08/18 09:11 Plan Activity: other (no strenous activity until cleared by pcp) Diet: low salt, diabetic Special Instructions: record daily BP diary, record blood sugar diary Follow up with: PRIMARY CARE, [Primary Care Provider] - 3-5 Days Prescriptions: Insulin Detemir [Levemir VIAL] 56 unit SQ QHS #1 vial Acetaminophen [Acetaminophen TAB] 650 mg PO Q4H PRN #30 tablet PRN Reason: Pain MILD(1-3)/Fever >100.5/[place] ALBUTEROL Inhaler [ProAir HFA Inhaler] 2 puff INHALATION Q12H PRN #1 unit PRN Reason: Wheezing ALBUTEROL NEB's [Proventil 0.083% NEBS] 2.5 mg IH Q4HRT PRN #30 nebu PRN Reason: Shortness Of Breath ALBUTEROL NEB's [Proventil 0.083% NEBS] 2.5 mg IH TID PRN #30 nebu PRN Reason: Wheezing Budesonide/Formoterol Fumarate [Symbicort 160-4.5 Mcg Inhaler] 1 dose IH BID #1 unit Carvedilol [Coreg] 12.5 mg PO BID #60 tablet Escitalopram [Lexapro] 10 mg PO DAILY #30 tablet HYDROcodone/APAP 10-325 [[place] 10-325 mg TAB] 1 each PO Q6HR PRN #12 tablet PRN Reason: Pain , Severe (7-10) Ipratropium/Albuterol Sulfate [DUONEB *Not for PRN Use*] 1 ampul IH TID #30 ampul.neb Lisinopril [Zestril TAB] 10 mg PO DAILY #30 tablet Lispro Insulin [Humalog] 1 dose SUB-Q ACHS #100 units Mirtazapine [Remeron] 15 mg PO HS #15 tablet NIFEdipine [Nifedipine ER] 30 mg PO DAILY #30 tab.er.24 Pantoprazole [Protonix TAB] 20 mg PO QDAY #30 tablet. predniSONE [Deltasone] 1 dose PO DAILY #48 tablet Pregabalin [Lyrica] 50 mg PO BID #60 capsule Sodium Bicarbonate 650 mg PO BID #60 tablet Levofloxacin [Levaquin TAB] 500 mg PO Q48HR #5 tablet
[2018-05-08] MEDS ORDERED: PROCARDIA XL PO SCH (10:00)
[2018-05-08] MEDS ORDERED: LEVAQUIN PO SCH (10:00)
[2018-05-08] MEDS: PROTONIX PO SCH (11:40)
[2018-05-08] MEDS: SODIUM BICARBONATE PO SCH (11:40)
[2018-05-08] MEDS: ZESTRIL PO SCH (11:41)
[2018-05-08] MEDS: LEXAPRO PO SCH (11:41)
[2018-05-08] MEDS: COREG PO SCH (11:42)
[2018-05-08] MEDS: HEPARIN SUB-Q SCH (11:43)
[2018-05-08] MEDS: SODIUM CHLORIDE FLUSH SYRINGE 10 ML IV SCH (11:44)
[2018-05-08 16:15] VITALS: BP 124/72
== END 2018-05-08 18:20 | disposition home or self-care (01) | DRG 682 ==
LOC: ED 08:10 → 3A 15:23
PROVIDERS: ADMIT Internal Medicine; ATTEND Internal Medicine
DX: N17.0 Acute kidney failure with tubular necrosis (principal); J96.01 Acute respiratory failure with hypoxia; J45.901 Unspecified asthma with (acute) exacerbation; E11.22 Type 2 diabetes mellitus with diabetic chronic kidney disease; N18.3 Chronic kidney disease, stage 3 (moderate); I12.9 Hypertensive chronic kidney disease with stage 1 through stage 4 chronic kidney disease, or unspecified chronic kidney disease; F32.9 Major depressive disorder, single episode, unspecified; K21.9 Gastro-esophageal reflux disease without esophagitis; E11.42 Type 2 diabetes mellitus with diabetic polyneuropathy; Z79.4 Long term (current) use of insulin; F17.200 Nicotine dependence, unspecified, uncomplicated; T38.0X5A Adverse effect of glucocorticoids and synthetic analogues, initial encounter; Y92.89 Other specified places as the place of occurrence of the external cause; Z71.6 Tobacco abuse counseling; D12.6 Benign neoplasm of colon, unspecified; Z83.3 Family history of diabetes mellitus; Z82.49 Family history of ischemic heart disease and other diseases of the circulatory system; Z88.1 Allergy status to other antibiotic agents; Z88.2 Allergy status to sulfonamides; Z79.899 Other long term (current) drug therapy; J20.9 Acute bronchitis, unspecified
CPT/HCPCS: 36415; 71045; 80048; 80053; 81001; 82140; 82550; 82553; 82570; 82947; 82962; 83880; 84300; 84484; 85025; 85027; 85379; 93005; 93010; 94640; 94760; 96374; 96375; J0360; J1170; J1200; J1644; J1815; J1956; J2270; J2405; J2920; J2930

== ENCOUNTER 2020-07-24 13:51 | Emergency (ER) | payer MEDICARE ==
[2020-07-24 13:59] VITALS: BP 116/67
--- NOTE | 2020-07-24 14:10 | Emergency Department Report ---
ED General Adult HPI - General Chief complaint: Dyspnea/Respdistress Stated complaint: TRACHEOSTOMY PROBLEMS Time Seen by Provider: 07/24/20 13:58 Source: patient, EMS Mode of arrival: Stretcher Limitations: No Limitations - History of Present Illness Initial comments: Patient is 65 years old female with history of chronic respiratory failure with a tracheostomy. Patient brought to the emergency room for evaluation of tracheostomy malfunction. Patient stated that it happened all of a sudden this afternoon. Patient currently denying any chest pain or shortness of breath. Patient is saturating at 100% on room air.. Patient denied any fever or chills. -: Sudden - Related Data Previous Rx's Medication Instructions Recorded Last Taken Type ALBUTEROL NEB's [Proventil 0.083% 2.5 mg IH Q4HRT PRN #30 nebu 05/08/18 Unknown Rx NEBS] ALBUTEROL NEB's [Proventil 0.083% 2.5 mg IH TID PRN #30 nebu 05/08/18 Unknown Rx NEBS] Acetaminophen [Acetaminophen TAB] 650 mg PO Q4H PRN #30 tablet 05/08/18 Unknown Rx Albuterol Mdi (or & Nicu Only) 2 puff INHALATION Q12H PRN #1 unit 05/08/18 Unknown Rx [ProAir HFA Inhaler] Amitriptyline [Elavil] 25 mg PO QHS #30 18 05/03/18 Rx Budesonide/Formoterol Fumarate 1 dose IH BID #1 unit 05/08/18 Unknown Rx [Symbicort 160-4.5 Mcg Inhaler] Escitalopram [Lexapro] 10 mg PO DAILY #30 tablet 05/08/18 Unknown Rx HYDROcodone/APAP 10-325 [[place] 1 each PO Q6HR PRN #12 tablet 05/08/18 Unknown Rx 10-325 mg TAB] Insulin Detemir [Levemir VIAL] 56 unit SQ QHS #1 vial 05/08/18 Unknown Rx Ipratropium/Albuterol Sulfate 1 ampul IH TID #30 ampul.neb 05/08/18 Unknown Rx [DUONEB *Not for PRN Use*] Lispro Insulin [HumaLOG] 1 dose SUB-Q ACHS #100 units 05/08/18 Unknown Rx Mirtazapine [Remeron] 15 mg PO HS #15 tablet 05/08/18 Unknown Rx NIFEdipine [Nifedipine ER] 30 mg PO DAILY #30 tab.er.24 05/08/18 Unknown Rx Pantoprazole [Protonix TAB] 20 mg PO QDAY #30 tablet. 05/08/18 Unknown Rx Pregabalin [Lyrica] 50 mg PO BID #60 capsule 05/08/18 Unknown Rx Sodium Bicarbonate 650 mg PO BID #60 tablet 05/08/18 Unknown Rx carvediloL [Coreg] 12.5 mg PO BID #60 tablet 05/08/18 Unknown Rx levoFLOXacin [Levaquin TAB] 500 mg PO Q48HR #5 tablet 05/08/18 Unknown Rx lisinopriL [Zestril TAB] 10 mg PO DAILY #30 tablet 05/08/18 Unknown Rx predniSONE [Deltasone] 1 dose PO DAILY #48 tablet 05/08/18 Unknown Rx Allergies Allergy/AdvReac Type Severity Reaction Status Date / Time sulfamethoxazole Allergy Unknown Verified 08/22/14 07:38 [From Bactrim] trimethoprim [From Bactrim] Allergy Unknown Verified 08/22/14 07:38 azithromycin [From Zithromax] AdvReac Mild Itching Verified 08/22/14 11:36 ED Review of Systems ROS: Stated complaint: TRACHEOSTOMY PROBLEMS Other details as noted in HPI Comment: All other systems reviewed and negative Constitutional: denies: chills, fever Respiratory: denies: cough, shortness of breath, SOB with exertion, SOB at rest, wheezing Cardiovascular: denies: chest pain Gastrointestinal: denies: abdominal pain, nausea, vomiting, diarrhea, constipati on, hematemesis, melena, hematochezia Neurological: denies: headache, weakness ED Past Medical Hx - Past Medical History Hx Hypertension: Yes Hx Diabetes: Yes Hx Renal Disease: Yes (Stage 3) Hx Asthma: Yes Additional medical history: "FAP" - Surgical History Additional Surgical History: "Colon" & "lumbar surgery" - Social History Smoking Status: Former Smoker - Medications Home Medications: Home Medications Medication Instructions Recorded Confirmed Last Taken Type ALBUTEROL NEB's [Proventil 0.083% 2.5 mg IH Q4HRT PRN #30 nebu 05/08/18 Unknown Rx NEBS] ALBUTEROL NEB's [Proventil 0.083% 2.5 mg IH TID PRN #30 nebu 05/08/18 Unknown Rx NEBS] Acetaminophen [Acetaminophen TAB] 650 mg PO Q4H PRN #30 tablet 05/08/18 Unknown Rx Albuterol Mdi (or & Nicu Only) 2 puff INHALATION Q12H PRN #1 unit 05/08/18 Unknown Rx [ProAir HFA Inhaler] Amitriptyline [Elavil] 25 mg PO QHS #30 05/08/18 05/04/18 05/03/18 Rx Budesonide/Formoterol Fumarate 1 dose IH BID #1 unit 05/08/18 Unknown Rx [Symbicort 160-4.5 Mcg Inhaler] Escitalopram [Lexapro] 10 mg PO DAILY #30 tablet 05/08/18 Unknown Rx HYDROcodone/APAP 10-325 [[place] 1 each PO Q6HR PRN #12 tablet 05/08/18 Unknown Rx 10-325 mg TAB] Insulin Detemir [Levemir VIAL] 56 unit SQ QHS #1 vial 05/08/18 Unknown Rx Ipratropium/Albuterol Sulfate 1 ampul IH TID #30 ampul.neb 05/08/18 Unknown Rx [DUONEB *Not for PRN Use*] Lispro Insulin [HumaLOG] 1 dose SUB-Q ACHS #100 units 05/08/18 Unknown Rx Mirtazapine [Remeron] 15 mg PO HS #15 tablet 05/08/18 Unknown Rx NIFEdipine [Nifedipine ER] 30 mg PO DAILY #30 tab.er.24 05/08/18 Unknown Rx Pantoprazole [Protonix TAB] 20 mg PO QDAY #30 tablet. 05/08/18 Unknown Rx Pregabalin [Lyrica] 50 mg PO BID #60 capsule 05/08/18 Unknown Rx Sodium Bicarbonate 650 mg PO BID #60 tablet 05/08/18 Unknown Rx carvediloL [Coreg] 12.5 mg PO BID #60 tablet 05/08/18 Unknown Rx levoFLOXacin [Levaquin TAB] 500 mg PO Q48HR #5 tablet 05/08/18 Unknown Rx lisinopriL [Zestril TAB] 10 mg PO DAILY #30 tablet 05/08/18 Unknown Rx predniSONE [Deltasone] 1 dose PO DAILY #48 tablet 05/08/18 Unknown Rx ED Physical Exam - General Limitations: No Limitations General appearance: alert, in no apparent distress - Head Head exam: Present: atraumatic, normocephalic, normal inspection - Eye Eye exam: Present: normal appearance - ENT ENT exam: Present: normal exam, normal orophraynx, mucous membranes moist - Neck Neck exam: Present: other (Tracheostomy in place.) - Respiratory Respiratory exam: Present: normal lung sounds bilaterally. Absent: respiratory distress, wheezes, rales, chest wall tenderness - Cardiovascular Cardiovascular Exam: Present: regular rate - GI/Abdominal GI/Abdominal exam: Present: soft, normal bowel sounds. Absent: distended, tenderness, guarding, rebound, rigid, organomegaly, mass, bruit, pulsatile mass, hernia - Extremities Exam Extremities exam: Present: normal inspection, full ROM, normal capillary refill. Absent: pedal edema, calf tenderness - Neurological Exam Neurological exam: Present: alert, oriented X3, CN II-XII intact - Skin Skin exam: Present: warm, intact, normal color ED Course Vital Signs 07/24/20 13:56 Temperature 98 F Pulse Rate 85 Respiratory 18 Rate Blood Pressure 116/67 [Right] O2 Sat by Pulse 93 Oximetry ED Medical Decision Making - Medical Decision Making Patient is 65 years old female with history of chronic respiratory failure with a tracheostomy. Patient brought to the emergency room for evaluation of tracheostomy malfunction. Patient stated that it happened all of a sudden this afternoon. Patient currently denying any chest pain or shortness of breath. Patient is saturating at 100% on room air.. Patient denied any fever or chills. radiation therapy technologist consulted for inner cannula change. He stated that they do not have this ICU but he will look into the warehouse. Patient stated that she does not want to be transferred to [facility] and she would rather go home and follow-up with her funeral location manager at [facility] in the morning. Critical care attestation.: If time is entered above; I have spent that time in minutes in the direct care of this critically ill patient, excluding procedure time. ED Disposition Clinical Impression: Tracheostomy care Disposition: DC-01 TO HOME OR SELFCARE Is pt being admited?: No Condition: Stable Instructions: Tracheostomy Care (ED) Referrals: PRIMARY CARE, [Referring] - 3-5 Days
== END 2020-07-24 17:08 | disposition home or self-care (01) ==
LOC: ED 13:51
DX: J95.03 Malfunction of tracheostomy stoma (principal); I10 Essential (primary) hypertension; E11.9 Type 2 diabetes mellitus without complications; J45.909 Unspecified asthma, uncomplicated; Z87.448 Personal history of other diseases of urinary system; Z87.891 Personal history of nicotine dependence; Z98.890 Other specified postprocedural states; Z79.2 Long term (current) use of antibiotics; Z79.4 Long term (current) use of insulin; Z79.899 Other long term (current) drug therapy; Z88.1 Allergy status to other antibiotic agents; Z88.8 Allergy status to other drugs, medicaments and biological substances